=== PATIENT | male | born 1955 | race Caucasian/White ===

== ENCOUNTER 2017-10-25 15:54 | Outpatient (CLI) | payer MEDICARE, MEDICAID ==
--- NOTE | 2017-10-25 17:06 | Diagnostic Imaging Report ---
Indication: Technique: 3 views of the left knee Comparison: None Findings: There are superior and inferior pole patellar osteophytes. The medial and lateral joint spaces are preserved The bones are osteoporotic. No definite acute fractures. No dislocations. There are vascular calcifications Impression: Osteoporosis Degenerative changes, as described No acute bony trauma
== END 2017-10-25 17:54 | disposition home or self-care (01) ==
LOC: RAD 15:54
DX: M25.562 Pain in left knee (principal); M81.0 Age-related osteoporosis without current pathological fracture